=== PATIENT | male | born 1960 | race Caucasian/White ===

== ENCOUNTER 2017-06-05 15:34 | Emergency (ER) | payer OTHER ==
[~2017-06-05] VITALS: Ht 175.3 cm; Wt 88.5 kg
[2017-06-05 15:37] VITALS: TEMP 36.5; Ht 175.3 cm; Wt 88.5 kg
[2017-06-05] MEDS ORDERED: ACETAMINOPHEN 500 MG TAB PO STA (15:58)
--- NOTE | 2017-06-05 16:08 | EMERGENCY ROOM VISIT NOTE ---
ED Visit Note First contact with patient: 15:45 CHIEF COMPLAINT: Back pain and right shoulder pain after fall 2 weeks ago HISTORY OF PRESENTING ILLNESS: This is a 57-year-old male who presents to the emergency department with complaint of mid to lower back pain and right shoulder pain has been ongoing for the past 2 weeks. He states the pain started after he had a fall. He states he was walking his dogs when they suddenly pulled and knocked him down, twisting his right shoulder and then he landed onto his mid to lower back. He states the pain has been getting progressively worse since the injury. He has not been seen by his provider for his symptoms. He has been taking methadone for his pain with some relief, states he takes 40 mg twice a day which is secondary to history of chronic neck pain after multiple neck surgeries. He has not tried any Tylenol or ibuprofen for his pain. He has not tried any ice or heat. He denies any numbness or tingling in the extremities, weakness in the extremities, saddle paresthesias, bowel or bladder dysfunction. He denies any other injuries, but states his neck pain has been worse than usual and would like his neck to be checked as well. He denies any symptoms of headaches, vision changes, chest pain, shortness of breath, abdominal pain, nausea or vomiting, diarrhea, bloody or black stools, urinary symptoms, or rash. REVIEW OF SYSTEMS: A complete 10 point review of systems was reviewed with the patient with pertinent positives and negatives as per history of present illness. All else were negative. PAST MEDICAL HISTORY: Reviewed in chart. SOCIAL HISTORY: Lives at home. Former smoker, denies alcohol, recreational drug use per ALLERGIES: No known allergies per PHYSICAL EXAM: CONSTITUTIONAL: Pleasant and cooperative. No acute distress. Delete well appearing and well nourished. HEENT: Normocephalic, atraumatic. Pupils equal, round and reactive to light, EOMI. TMs normal. Pharynx normal. Delete NECK: Supple, full active range of motion without discomfort. RESPIRATORY: Clear to auscultation bilaterally with no wheezing, crackles, rhonchi or stridor. Equal expansion bilaterally. CARDIOVASCULAR: Regular rate and rhythm with no murmurs, rubs or gallops. Normal peripheral perfusion. No edema. GASTROINTESTINAL: Soft, nontender, nondistended. No palpable masses or HSM. Bowel sounds present in all quadrants. BACK: There is midline tenderness of the spine around T10-L2, paraspinous muscle tenderness with muscle spasm noted. There are no step-offs or crepitus. There is no ecchymosis or abrasion noted. MUSCULOSKELETAL: There is mild tenderness to palpation of the right anterior shoulder, no swelling or ecchymosis. Full range of motion with normal strength of the right shoulder. Full range of motion of all other joints without discomfort. INTEGUMENTARY: No rash or other significant dermatologic conditions noted. NEUROLOGIC: Alert and oriented X 4 with normal affect. Cranial nerves II-XII grossly intact. No focal neurologic deficits noted. Normal strength and sensation in all 4 extremities. 2+ patellar and Achilles deep tendon reflexes. Normal speech. Normal gait observed. ED COURSE AND MEDICAL DECISION MAKING: CC: Patient presenting with complaint of back pain, shoulder pain after fall DIFFERENTIAL DIAGNOSIS: Includes, but not limited to contusion, abrasion, hematoma, fracture, subluxation, rotator cuff injury, ligamentous injury, among others. IMAGING: CERVICAL SPINE 5 VIEWS HISTORY: midline neck pain after fall, multiple past neck surgeries COMPARISON: None. FINDINGS: The cervical spine is visualized from C1 through the superior endplate of T1. There is no fracture. No subluxation. Anterior cervical discectomy and fusion at C4-C5 and C7-T1. There is also a disc spacer at C5-C6. The hardware appears intact. Mild to moderate bilateral neural foraminal narrowing at the 4 C5, C5-C6, and C6-C7. Prevertebral soft tissues and the atlantodens interval are intact. IMPRESSION: No fracture or subluxation within the cervical spine. Postoperative changes as described above. ---- THORACIC SPINE 3 VIEWS HISTORY: most tender T10-L2, eval vetebral fracture, subluxation COMPARISON: None. FINDINGS: There is no fracture. No subluxation. Mild degenerative disc disease throughout the thoracic spine. Cervical spinal fusion hardware. Paraspinal soft tissues are unremarkable. IMPRESSION: No fracture or subluxation within the thoracic spine. ----- LUMBAR SPINE 5 VIEWS HISTORY: Low back pain. Fall. most tender T10-L2, eval vetebral fracture, subluxation COMPARISON: None. FINDINGS: There is no fracture. No subluxation. Moderate disc space narrowing at L5-S1. Mild disc space to L4-L5. Mild to moderate facet degenerative changes seen within the lower lumbar spine. IMPRESSION: No fracture or subluxation within the lumbar spine. ----- RIGHT SHOULDER 3 VIEWS HISTORY: fall, right shoulder pain COMPARISON: None. FINDINGS: There is no fracture or dislocation. Soft tissues are unremarkable. The right clavicle is intact. Mild osteoarthritis at the glenohumeral joint. IMPRESSION: No fracture or dislocation within the right shoulder. MEDICATION RECONCILIATION: I attest that I have personally reviewed the patient 's current medication list. INITIAL VITAL SIGNS REVIEW: I reviewed the patient's initial vital signs and interpret them as follows: T: Afebrile; BP: Hypertensive; HR: Tachycardic; RR : Within normal; Pulse Ox: Within normal limits on room air. Blood pressure screening: The patient was found to have an elevated blood pressure and was referred to their primary doctor for recheck and further treatment. SUMMARY: Patient was evaluated at bedside, history and physical exam performed. Patient is alert and oriented, no acute distress, resting calmly on the stretcher. Patient does have midline tenderness of his mid to lower back, as well as some muscle spasm noted. There is mild tenderness of the right anterior shoulder, but no weakness or decreased range of motion. There are no red flag symptoms or history for spinal cord involvement. Orders were placed at bedside for x-rays of the cervical, thoracic, and lumbar spine as well as x-ray of the right shoulder to evaluate for trauma. Imaging reviewed as above, no acute abnormalities. The patient was given oral Tylenol and IM Toradol, with good improvement in his pain. His hypertension and tachycardia are downtrending as well. Patient reassessed multiple times throughout ED stay, he feels improved and is anxious for discharge. Patient states he recently moved to the area and has not established with a PCP , our case investigator provided him with information for this. Patient was also provided with information for orthopedics and spine surgery for further evaluation and management of his back and shoulder pain. Patient was also given strict return precautions should his symptoms worsen, he verbalized understanding. Patient was discharged home in stable condition and ambulatory. Current/Historical Medications Scheduled Amitriptyline Hcl (Elavil), 50 MG PO DAILY Duloxetine Hcl (Cymbalta), 60 MG PO DAILY Meloxicam (Mobic), 1 TAB PO DAILY Methadone Hcl (Methadone Hcl), 1 TAB PO BID Allergies Coded Allergies: No Known Allergies (Unverified , 06/05/17) Vital Signs Date Time Temp Pulse Resp B/P (MAP) Pulse Ox O2 Delivery O2 Flow Rate FiO2 06/05/17 17:41 81 18 155/94 98 Room Air 06/05/17 15:37 36.5 103 18 192/103 95 Room Air Medications Administered Medications (Trade) Dose Ordered Sig/Seda Route Start Time Stop Time Status Last Admin Dose Admin Acetaminophen (Tylenol Tab) 1,000 mg NOW STAT PO 06/05/17 15:58 06/05/17 16:03 DC 06/05/17 16:11 1,000 MG Ketorolac Tromethamine (Toradol Inj) 60 mg NOW STAT IM 06/05/17 17:23 06/05/17 17:24 DC 06/05/17 17:37 60 MG Departure Information Impression Primary Impression: Back pain due to injury Additional Impressions: Right shoulder pain Fall Dispostion Home / Self-Care Condition GOOD Prescriptions Meloxicam (MOBIC) 15 Mg Tab 1 TAB PO DAILY for 14 Days, #14 TAB 1 Refill Prov: Rosalind Roa, RV SERVICER 06/05/17 Referrals Joaquin Wesley, Reyes Cha, DO Patient Instructions ED Low Back Pain Injury, ED Shoulder Pain [facility] [place], [facility] Additional Instructions Take it easy for the next few days, no strenuous activity, heavy lifting, or bending/twisting motions, to allow your back to rest. Alternate heat and ice for comfort. After heat, you may do gentle stretching and massage to the low back. Mobic as prescribed once a day for the next two weeks to treat your pain and inflammation in your back. Do not take other NSAIDs while you are taking this medication. Tylenol extra strength (500 mg) 1-2 tablets every 6-8 hours as needed for pain. Do not take more than 3000 mg (6 tablets) in 24 hours. Follow up with a primary care provider in the next few days for further management. You may benefit from physical therapy. You should also follow-up with an orthopedic doctor for your shoulder pain, and an orthopedic-spine surgeon for your back pain. Please return to the ER if any problems with bowel or bladder function, numbness in your groin, high fevers, severe abdominal pain or worsening back pain, or if loss of feeling/movement of arms or legs. Problem Qualifiers Additional Impressions: Right shoulder pain Chronicity: acute Qualified Codes: M25.511 - Pain in right shoulder Fall Encounter type: initial encounter Qualified Codes: W19.XXXA - Unspecified fall, initial encounter
[2017-06-05] MEDS ORDERED: DULO60CA44 PO (16:43)
[2017-06-05] MEDS ORDERED: METH40TA15 PO (16:43)
[2017-06-05] MEDS ORDERED: AMT50 PO (16:43)
--- NOTE | 2017-06-05 16:59 | DIAGNOSTIC IMAGING REPORT ---
LUMBAR SPINE 5 VIEWS HISTORY: Low back pain. Fall. most tender T10-L2, eval vetebral fracture, subluxation COMPARISON: None. FINDINGS: There is no fracture. No subluxation. Moderate disc space narrowing at L5-S1. Mild disc space to L4-L5. Mild to moderate facet degenerative changes seen within the lower lumbar spine. IMPRESSION: No fracture or subluxation within the lumbar spine. Electronically signed by: Paul Magallanes M.D. 06/05/2017 4:58 PM Dictated Date/Time: 06/05/2017 4:56 PM
--- NOTE | 2017-06-05 17:01 | DIAGNOSTIC IMAGING REPORT ---
RIGHT SHOULDER 3 VIEWS HISTORY: fall, right shoulder pain COMPARISON: None. FINDINGS: There is no fracture or dislocation. Soft tissues are unremarkable. The right clavicle is intact. Mild osteoarthritis at the glenohumeral joint. IMPRESSION: No fracture or dislocation within the right shoulder. Electronically signed by: Paul Magallanes M.D. 06/05/2017 5:00 PM Dictated Date/Time: 06/05/2017 4:58 PM
--- NOTE | 2017-06-05 17:02 | DIAGNOSTIC IMAGING REPORT ---
THORACIC SPINE 3 VIEWS HISTORY: most tender T10-L2, eval vetebral fracture, subluxation COMPARISON: None. FINDINGS: There is no fracture. No subluxation. Mild degenerative disc disease throughout the thoracic spine. Cervical spinal fusion hardware. Paraspinal soft tissues are unremarkable. IMPRESSION: No fracture or subluxation within the thoracic spine. Electronically signed by: Paul Magallanes M.D. 06/05/2017 5:01 PM Dictated Date/Time: 06/05/2017 5:00 PM
--- NOTE | 2017-06-05 17:05 | DIAGNOSTIC IMAGING REPORT ---
CERVICAL SPINE 5 VIEWS HISTORY: midline neck pain after fall, multiple past neck surgeries COMPARISON: None. FINDINGS: The cervical spine is visualized from C1 through the superior endplate of T1. There is no fracture. No subluxation. Anterior cervical discectomy and fusion at C4-C5 and C7-T1. There is also a disc spacer at C5-C6. The hardware appears intact. Mild to moderate bilateral neural foraminal narrowing at the 4 C5, C5-C6, and C6-C7. Prevertebral soft tissues and the atlantodens interval are intact. IMPRESSION: No fracture or subluxation within the cervical spine. Postoperative changes as described above. Electronically signed by: Paul Magallanes M.D. 06/05/2017 5:04 PM Dictated Date/Time: 06/05/2017 5:01 PM
[2017-06-05] MEDS ORDERED: KETOROLAC TROMETHAMINE 60 MG/2 ML VIAL IM STA (17:23)
[2017-06-05 17:41] VITALS: BP 155/94; PULSE 81; O2SAT 98
[2017-06-05] MEDS ORDERED: MELO15TA10 PO (17:53)
== END 2017-06-05 18:14 | disposition home or self-care (01) ==
LOC: C.EDB 15:35 → C.EDD 18:14
DX: M54.9 Dorsalgia, unspecified (principal); M25.511 Pain in right shoulder; M62.830 Muscle spasm of back; W18.39XA Other fall on same level, initial encounter; Y93.K1 Activity, walking an animal; Y99.8 Other external cause status; Z87.891 Personal history of nicotine dependence

== ENCOUNTER 2017-06-15 12:05 | Emergency (ER) | payer OTHER ==
[~2017-06-15] VITALS: Ht 175.3 cm; Wt 86.0 kg
[~2017-06-15 12:05] MED LIST: AMT50 PO; DULO60CA44 PO; MELO15TA10 PO; METH40TA15 PO
[2017-06-15 12:08] VITALS: Ht 175.3 cm; Wt 86.0 kg
[2017-06-15] MEDS ORDERED: OXYC-57 PO (12:58)
[2017-06-15] MEDS ORDERED: SIMV40TA2 PO (12:58)
[2017-06-15] MEDS ORDERED: DULO60CA44 PO (12:58)
[2017-06-15] MEDS ORDERED: ZOLP10TA PO (12:58)
[2017-06-15] MEDS ORDERED: DOCU100C31 PO (12:58)
[2017-06-15] MEDS ORDERED: METH10TA2 PO (12:58)
[2017-06-15] MEDS ORDERED: AMT50 PO (12:58)
[2017-06-15] MEDS ORDERED: OXYCODONE HCL IR 5 MG TAB (IMMEDIATE RELEASE) PO STA (13:22)
--- NOTE | 2017-06-15 13:43 | EMERGENCY ROOM VISIT NOTE ---
History Report prepared by Tal: Dean Pineda Under the Supervision of: Dr. Vj Woodson M.D. First contact with patient: 13:09 Chief Complaint: OTHER COMPLAINT Stated Complaint: JUST MOVED FROM [place], WITHDRAW FROM PRESCRIPTION History of Present Illness The patient is a 57 year old male who presents to the Emergency Room with Methadone withdrawal beginning two days ago. The patient has a past medical history of depression and a neck fracture that occurred 18 years ago. Since then , the patient has been taking Methadone 80 mg PO every single day to manage his pain with Oxycodone for break through pain. The patient has been living down in [place] over this time and recently moved to [place] because his mother . He brought all of his records and paperwork from his pain management physician to [place] to try to get into the [facility]. However, they denied him help because of the dose of Methadone that he is currently taking. He also cannot go to the Methadone Clinic because he is not an addict. A couple of days ago, he began to decrease his dose to ration his pills as long as he could, but he has not been able to take any Methadone for the past two days. He denies any nausea, vomiting, weakness, or numbness at this time. However, he is beginning to feel withdrawal symptoms and is agitated. He denies any suicidal ideation or any blood thinner use. Source of History: patient, family Onset: two days ago Position: other (Global) Symptom Intensity: moderate Quality: other (Methadone withdrawal) Timing: constant Associated Symptoms: No nausea, No vomiting, No weakness, No numbness Note: He denies any suicidal ideation. He is currently agitated. Review of Systems See HPI for pertinent positives & negatives. A total of 10 systems reviewed and were otherwise negative. Past Medical & Surgical Medical Problems: (1) Neck pain Surgical Problems: (1) History of neck surgery Old medical records were reviewed. Nurse's notes were reviewed and I agree with. Family History Omitted secondary to the patient's age. Social History Smoking Status: Former Smoker Smokeless Tobacco Use: No Drug Use: none Housing Status: lives with family Current/Historical Medications Scheduled Amitriptyline Hcl (Elavil), 50 MG PO DAILY Docusate Sodium (Docusate Sodium), 100 MG PO DAILY Duloxetine Hcl (Cymbalta), 60 MG PO DAILY Simvastatin (Zocor), 40 MG PO DAILY Scheduled PRN Methadone Hcl (Dolophine), 20 MG PO Q6 PRN for Pain Oxycodone Immediate Rel Tab (Roxicodone Ir), 1-2 TAB PO Q4H PRN for Severe Pain Oxycodone/Acetaminophen 5MG/325MG (Percocet 5MG/325MG), 1 TABLET PO Q8 PRN for Pain Zolpidem Tartrate (Ambien), 10 MG PO HS PRN for Sleep Allergies Coded Allergies: No Known Allergies (Unverified , 06/15/17) Physical Exam Vital Signs Date Time Temp Pulse Resp B/P (MAP) Pulse Ox O2 Delivery O2 Flow Rate FiO2 06/15/17 15:53 36.8 110 20 160/109 96 06/15/17 14:44 110 20 160/109 96 06/15/17 12:08 36.8 113 16 195/110 97 Physical Exam General: Non-ill appearing older male in no acute distress. HEENT: Normal cephalic atraumatic. Pupils are equal round and reactive to light. Extraocular movements are intact. Oropharynx is pink with moist mucous membranes. No swelling of the mouth lips or tongue. Neck: Supple with a midline trachea. No meningeal signs or stiffness, no JVD or bruits. No Stridor. Chest: Clear to auscultation bilaterally. No wheezes or rhonchi. No increased work of breathing. Heart: regular rate and rhythm. Abdomen: Soft nontender, nondistended without rebound guarding or rigidity. Extremities: No cyanosis clubbing or edema. No calf tenderness or assymetry Spine/Back. Non tender to palpation. No CVA tenderness Skin: Good turgor without rashes. Neurologic exam: Cranial nerves two through 12 are intact. Motor and sensation are intact and symmetrical throughout. Medical Decision & Procedures Medications Administered Medications (Trade) Dose Ordered Sig/Seda Route Start Time Stop Time Status Last Admin Dose Admin Oxycodone HCl (Roxicodone Immediate Rel Tab) 10 mg NOW STAT PO 06/15/17 13:22 06/15/17 13:24 DC 06/15/17 13:29 10 MG ED Course 1309: Past medical records reviewed. The patient was evaluated in room A8, and a complete history and physical examination were performed. 1322: Ordered Oxycodone HCl 10 mg PO 1500: Upon reevaluation, the patient is resting. I discussed the results and treatment plan with him. He verbalized agreement of the treatment plan. The patient was discharged home. Medical Decision Differentials include, but are not limited to; narcotic withdrawal, acute exacerbation of chronic pain, and infection. This patient comes in as described above. He has chronic pain medicine for chronic neck pain that he has been going on for years. He was scheduled to get in to have pain medicine clinic here and he had been waiting for 2 months and when he saw them today they said that they do not prescribe methadone and could not help him. Apparently the methadone clinic will help him either as he uses methadone for pain and not withdrawal type symptoms. I called and talked to her pain management clinic and they feel that he needs to get established with a primary care physician for pain management and they could see him in consultation but would not seem directly from the ER and referral. We tried other pain management clinics in town but could not find a solution for him. We have got obtained primary care physician to see him early next week. I gave him a small prescription for OxyIR for pain and to help with withdrawal. He can use OxyIR 5 mg 1-2 pills every 4-6 hours as needed for pain. He is warned that it could make him drowsy and do not take before drinking, driving and working. He should return if: increasing pain, worsening of symptoms, any new problems or concerns. He was happy the plan and discharged to home. Medication Reconcilliation Current Medication List: was personally reviewed by me Blood Pressure Screening Patient's blood pressure: Elevated blood pressure Blood pressure disposition: Elevated BP felt to be situational Impression Primary Impression: Chronic neck pain Additional Impression: Encounter for medication refill Scribe Attestation The scribe's documentation has been prepared under my direction and personally reviewed by me in its entirety. I confirm that the note above accurately reflects all work, treatment, procedures, and medical decision making performed by me. Departure Information Dispostion Home / Self-Care Prescriptions Oxycodone Immediate Rel Tab (ROXICODONE IR) 5 Mg Tab 1-2 TAB PO Q4H Y for Severe Pain, #24 TAB Prov: Vj Woodson M.D. 06/15/17 Referrals No Doctor, Assigned (PCP) Forms HOME CARE DOCUMENTATION FORM, IMPORTANT VISIT INFORMATION, WORK / SCHOOL INSTRUCTIONS Patient Instructions My [facility] Additional Instructions Rest Drink plenty of fluids Return if: worsening of symptoms, any new problems or concerns Follow-up with the [place] [facility] [address] [place] [id number] Junejune 23 @ 1:45 Seble Reeves For pain, use OxyIR 5mg1-2 pills every 4-6 hours as needed for pain. OxyIR may make you drowsy do not take for drinking, driving, working We will call you if we can get you in with an appointment with a primary sooner. Problem Qualifiers
[2017-06-15] MEDS ORDERED: OXYC1TAB3 PO (14:44)
[2017-06-15 15:53] VITALS: BP 160/109; PULSE 110; TEMP 36.8; O2SAT 96
== END 2017-06-15 15:53 | disposition home or self-care (01) ==
LOC: C.EDB 12:07 → C.EDA 15:53
DX: M54.2 Cervicalgia (principal); G89.29 Other chronic pain; Z76.0 Encounter for issue of repeat prescription; F32.9 Major depressive disorder, single episode, unspecified; Z87.891 Personal history of nicotine dependence; Z79.899 Other long term (current) drug therapy